=== PATIENT | male | born 1965 | race Caucasian/White ===

== ENCOUNTER 2017-05-20 17:53 | Emergency (ER) | payer OTHER ==
[~2017-05-20] VITALS: Ht 172.7 cm; Wt 83.0 kg
[~2017-05-20 17:53] MED LIST: GLUCTAB PO; IBUP800T23 PO
[2017-05-20 18:09] VITALS: BP 172/85; PULSE 82; RESP 16; TEMP 98.9; O2SAT 100
[2017-05-20] MEDS ORDERED: GLIP1TAB51 PO (18:57)
[2017-05-20 19:12] VITALS: BP 155/85; PULSE 68; RESP 20; TEMP 98; O2SAT 99
[2017-05-20 19:27] LABS: AUTOMATED NEUTROPHIL # 4.6 TH/MM3 (1.8-7.7); BASOPHIL % 0.7 % (0.0-2.0); EOSINOPHIL # 0.2 TH/MM3 (0-0.4); EOSINOPHIL % 3.7 % (0.0-4.0); HEMATOCRIT 42.8 % (39.0-51.0); HEMO FLAGS DIFF FINAL; LYMPH % 18.6 % (9.0-44.0); LYMPHOCYTE # 1.2 TH/MM3 (1.0-4.8); MEAN CELL VOLUME 85.9 FL (80.0-100.0); MEAN CORPUSCULAR HEMOGLOBIN 29.2 PG (27.0-34.0); MONO % 10.5 % (0.0-8.0); NEUT % 66.5 % (16.0-70.0); PLATELET COUNT 222 TH/MM3 (150-450); RED BLOOD COUNT 4.98 MIL/MM3 (4.50-5.90); WHITE BLOOD COUNT 6.7 TH/MM3 (4.0-11.0)
[2017-05-20 19:37] LABS: CHLORIDE 97 MEQ/L (98-107); POTASSIUM 3.8 MEQ/L (3.5-5.1); SODIUM (NA) 131 MEQ/L (136-145)
[2017-05-20 19:40] LABS: ANION GAP 8 MEQ/L (5-15); BICARBONATE 25.8 MEQ/L (21.0-32.0); BLOOD UREA NITROGEN 15 MG/DL (7-18)
[2017-05-20 19:43] LABS: ALT (GPT) 27 U/L (12-78)
[2017-05-20 19:44] LABS: AST (GOT) 14 U/L (15-37); GLOMERULAR FILTRATION RATE 64 ML/MIN (>89)
[2017-05-20 19:45] LABS: TOTAL BILIRUBIN ADULT 0.6 MG/DL (0.2-1.0)
[2017-05-20 19:46] LABS: ALKALINE PHOSPHATASE 134 U/L (45-117)
--- NOTE | 2017-05-20 20:09 | PD ---
HPI Chief Complaint: Hypertension Time Seen by Provider: 18:18 Travel History International Travel<30 days: No Contact w/Intl Traveler<30days: No Traveled to known affect area: No History of Present Illness HPI Patient is a 51-year-old male who comes in because he notices blood pressure was high. He says today he was at the past pressure when he felt like his sugar was getting low. He says he had a soda and a candy bar and felt better, but he called the ambulance to be checked out. He says when they arrived he was told his blood pressure was high. He says he came in because he wanted to be checked out for the high blood pressure. He says he was told he had high blood pressure in the past, but was weaned off of his blood pressure medication by his doctor. He denies any chest pain, shortness of breath, headache or blurred vision. He says overall he is feeling better since eating. PFSH Past Medical History Arthritis: Yes Blood Disorders: No Cancer: No Cardiovascular Problems: Yes Chemotherapy: No Chest Pain: Yes Diabetes: Yes Patient Takes Glucophage: No Diminished Hearing: No Endocrine: Yes Genitourinary: No Hypertension: Yes Immune Disorder: No Musculoskeletal: Yes (KNEE) Neurologic: No Psychiatric: No Reproductive: No Respiratory: No Radiation Therapy: No Tetanus Vaccination: < 5 Years Influenza Vaccination: No Past Surgical History Appendectomy: Yes Pacemaker: No Social History Alcohol Use: No Tobacco Use: No Substance Use: No Allergies-Medications (Allergen,Severity, Reaction): Coded Allergies: banana (Unverified Allergy, Severe, Anaphylaxis, 05/20/17) cephalexin (Unverified Allergy, Severe, hives, 05/20/17) mushroom (Unverified Allergy, Severe, Anaphylaxis, 05/20/17) Uncoded Allergies: B B Q SAUCE (Allergy, Severe, 11/14/05) Reported Meds & Prescriptions Reported Meds & Active Scripts Active Reported Glipizide ER (Glipizide) 10 Mg Glen 10 Mg PO DAILY Take with breakfast or first main meal of the day Review of Systems Except as stated in HPI: all other systems reviewed are Neg General / Constitutional: No: Fever, Chills Eyes: No: Blurred Vision HENT: No: Headaches, Lightheadedness Cardiovascular: No: Chest Pain or Discomfort, Palpitations Respiratory: No: Shortness of Breath Gastrointestinal: No: Nausea, Vomiting Musculoskeletal: No: Myalgias, Edema Skin: No Rash, No Change in Pigmentation Neurologic: No: Weakness, Dizziness Physical Exam Narrative GENERAL: Awake and alert, in no acute distress. SKIN: Focused skin assessment warm/dry. HEAD: Atraumatic. Normocephalic. EYES: Pupils equal and round. No scleral icterus. Extraocular movements intact. ENT: Mucous membranes pink and moist. NECK: Trachea midline. No JVD. CARDIOVASCULAR: Regular rate and rhythm. No murmur appreciated. RESPIRATORY: No accessory muscle use. Clear to auscultation. Breath sounds equal bilaterally. GASTROINTESTINAL: Abdomen soft, non-tender, nondistended. MUSCULOSKELETAL: No obvious deformities. No clubbing. No cyanosis. No edema. NEUROLOGICAL: Awake and alert. No obvious cranial nerve deficits. Motor grossly within normal limits. Normal speech. PSYCHIATRIC: Appropriate mood and affect; insight and judgment normal. Data Data Last Documented VS Vital Signs Date Time Temp Pulse Resp B/P (MAP) Pulse Ox O2 Delivery O2 Flow Rate FiO2 05/20/17 19:12 98.0 68 20 155/85 (108) 99 Room Air Orders Orders Iv Access Insert/Monitor (05/20/17 18:25) Complete Blood Count With Diff (05/20/17 18:25) Comprehensive Metabolic Panel (05/20/17 18:25) Troponin I (05/20/17 18:25) Electrocardiogram (05/20/17 ) Labs Laboratory Tests Test 05/20/17 19:05 White Blood Count 6.7 TH/MM3 Red Blood Count 4.98 MIL/MM3 Hemoglobin 14.5 GM/DL Hematocrit 42.8 % Mean Corpuscular Volume 85.9 FL Mean Corpuscular Hemoglobin 29.2 PG Mean Corpuscular Hemoglobin Concent 34.0 % Red Cell Distribution Width 13.0 % Platelet Count 222 TH/MM3 Mean Platelet Volume 7.1 FL Neutrophils (%) (Auto) 66.5 % Lymphocytes (%) (Auto) 18.6 % Monocytes (%) (Auto) 10.5 % Eosinophils (%) (Auto) 3.7 % Basophils (%) (Auto) 0.7 % Neutrophils # (Auto) 4.6 TH/MM3 Lymphocytes # (Auto) 1.2 TH/MM3 Monocytes # (Auto) 0.7 TH/MM3 Eosinophils # (Auto) 0.2 TH/MM3 Basophils # (Auto) 0.0 TH/MM3 CBC Comment DIFF FINAL Differential Comment Blood Urea Nitrogen 15 MG/DL Creatinine 1.20 MG/DL Random Glucose 249 MG/DL Total Protein 7.6 GM/DL Albumin 4.0 GM/DL Calcium Level 8.3 MG/DL Alkaline Phosphatase 134 U/L Aspartate Amino Transf (AST/SGOT) 14 U/L Alanine Aminotransferase (ALT/SGPT) 27 U/L Total Bilirubin 0.6 MG/DL Sodium Level 131 MEQ/L Potassium Level 3.8 MEQ/L Chloride Level 97 MEQ/L Carbon Dioxide Level 25.8 MEQ/L Anion Gap 8 MEQ/L Estimat Glomerular Filtration Rate 64 ML/MIN Troponin I LESS THAN 0.02 NG/ML MDM Medical Decision Making Medical Screen Exam Complete: Yes Emergency Medical Condition: Yes Medical Record Reviewed: Yes Interpretation(s) ECG shows normal sinus rhythm at 61, no ST elevation or depression, normal intervals. Differential Diagnosis Benign essential hypertension versus anxiety versus hyperglycemia versus hypoglycemia Narrative Course Patient is a 51-year-old male who comes in because he is concerned his blood pressure is high. Exam shows no acute abnormalities. He never had any chest pain, shortness of breath, blurred vision, headache, dizziness. He has no physical complaints at this time. IV established, labs sent. Labs show no acute abnormalities, blood sugar is 249. Troponin is negative, creatinine is within normal limits. Patient's blood pressure is 155/85 without medication. He is having no symptoms currently. He is advised to call his doctor tomorrow and make an appointment to speak with him regarding blood pressure medications. He is advised of reasons to return to the emergency department and advised to return as needed for any worsening symptoms. Diagnosis Primary Impression: High blood pressure Qualified Codes: I10 - Essential (primary) hypertension Patient Instructions: General Instructions, Hypertension (ED) Additional Instructions: Follow-up with your doctor regarding her blood pressure. Return any time for any worsening symptoms. Disposition: 01 DISCHARGE HOME Condition: Stable Karen Olivares MD May 20, 2017 20:09
--- NOTE | 2017-05-21 19:33 | EKG ---
Date Performed: 05/20/2017 Time Performed: 19:20:50 PTAGE: 51 years EKG: Sinus rhythm NORMAL ECG PREVIOUS TRACING : 02/26/2016 06.10 Compared to prior tracing no significant change DOCTOR: Juliano Bledsoe Interpretating Date/Time 05/21/2017 19:31:05
== END 2017-05-20 20:34 | disposition home or self-care (01) ==
LOC: PHED 17:53
DX: I10 Essential (primary) hypertension (principal); E11.9 Type 2 diabetes mellitus without complications; M19.90 Unspecified osteoarthritis, unspecified site
CPT/HCPCS: 80053; 84484; 85025; 93005; 99284

== ENCOUNTER 2017-08-23 19:36 | Observation (INO) | payer OTHER ==
[~2017-08-23] VITALS: Ht 172.7 cm; Wt 75.0 kg
[~2017-08-23 19:36] MED LIST changes: +GLIP1TAB51 PO; -GLUCTAB PO; -IBUP800T23 PO
[2017-08-23 19:44] VITALS: BP 180/89; PULSE 74; RESP 18; TEMP 98.2; O2SAT 99
[2017-08-23] MEDS ORDERED: LOSA50TA PO (19:53)
[2017-08-23] MEDS ORDERED: LORazepam 2 MG/ML VIAL IV PUSH ONE (20:00)
[2017-08-23 20:14] LABS: BASOPHIL % 0.8 % (0.0-2.0); EOSINOPHIL # 0.2 TH/MM3 (0-0.4); EOSINOPHIL % 3.9 % (0.0-4.0); HEMATOCRIT 37.4 % (39.0-51.0); HEMOGLOBIN 13.6 GM/DL (13.0-17.0); LYMPH % 26.9 % (9.0-44.0); LYMPHOCYTE # 1.4 TH/MM3 (1.0-4.8); MEAN CELL VOLUME 84.8 FL (80.0-100.0); MEAN CORPUSCULAR HEMOGLOBIN 30.9 PG (27.0-34.0); MEAN PLATELET VOLUME 6.8 FL (7.0-11.0); MONO % 12.2 % (0.0-8.0); MONOCYTE # 0.7 TH/MM3 (0-0.9); NEUT % 56.2 % (16.0-70.0); PLATELET COUNT 206 TH/MM3 (150-450); RED CELL DISTRIBUTION WIDTH 14.4 % (11.6-17.2); WHITE BLOOD COUNT 5.4 TH/MM3 (4.0-11.0)
[2017-08-23 20:15] LABS: MEAN CORPUSCULAR HGB CONC 36.4 % (32.0-36.0)
--- NOTE | 2017-08-23 20:15 | RADRPT ---
EXAM DATE/TIME: 08/23/2017 19:59 [facility] COMPARISON: No previous studies available for comparison. INDICATIONS : Chest pain. MEDICAL HISTORY : None. SURGICAL HISTORY : None. ENCOUNTER: Initial ACUITY: 1 day PAIN SCORE: 7/10 LOCATION: middle chest. FINDINGS: A single view of the chest demonstrates the lungs to be symmetrically aerated without evidence of mas s, infiltrate or effusion. The cardiomediastinal contours are unremarkable. Osseous structures are intact. There is near atelectasis at the right lung base. CONCLUSION: Platelike atelectasis at the right base is suspected. Mihir Mauricio MD on August 23, 2017 at 20:13 Board Certified Radiologist. This report was verified electronically.
[2017-08-23] MEDS ORDERED: PANTOPRAZOLE SODIUM 40 MG VIAL IV PUSH ONE (20:30)
[2017-08-23 20:33] LABS: BICARBONATE 24.2 MEQ/L (21.0-32.0); BLOOD UREA NITROGEN 15 MG/DL (7-18); CALCIUM 8.2 MG/DL (8.5-10.1); CHLORIDE 103 MEQ/L (98-107); CREATININE 1.18 MG/DL (0.60-1.30); GLOMERULAR FILTRATION RATE 65 ML/MIN (>89); GLUCOSE,RANDOM 266 MG/DL (74-106); SODIUM (NA) 135 MEQ/L (136-145)
[2017-08-23 20:36] LABS: TROPONIN I LESS THAN 0.02 NG/ML (0.02-0.05)
[2017-08-23 21:05] VITALS: BP 143/76; PULSE 78; RESP 18; O2SAT 98
[2017-08-23] MEDS ORDERED: SODIUM CHLORIDE 0.9% FLUSH 10 ML FLUSH IV FLUSH PRN (22:30)
--- NOTE | 2017-08-23 23:17 | PD ---
HPI Chief Complaint: Chest Pain Time Seen by Provider: 19:41 Travel History International Travel<30 days: No Contact w/Intl Traveler<30days: No Traveled to known affect area: No History of Present Illness HPI Patient is a 51-year-old male who is eating dinner porkchops suddenly during his meal he felt severe pain in his substernal area epigastrium. He did not feel choking he just felt as if something was burning in his mid sternal substernal area. This family called 911 reports he looked pale and diaphoretic during that he made himself vomit and food did come back up but he still had pain paramedics got in the ambulance gave him 2 nitroglycerin sprays and 4 baby aspirin en route the pain seemed to subside by the time he arrives in the ER he is no more pain. Past medical history is he's not insulin dependent diabetic on glipizide and he takes losartan for hypertension he has had a stress test over 5 years ago but not since then. At the time I got to the patient EKG I reviewed labs were ordered his pain was completely resolved. PFSH Past Medical History Arthritis: Yes Blood Disorders: No Cancer: No Cardiovascular Problems: Yes (HTN) Chemotherapy: No Chest Pain: Yes Diabetes: Yes (Glipizide) Patient Takes Glucophage: Yes Diminished Hearing: No Endocrine: Yes Genitourinary: No Hypertension: Yes Immune Disorder: No Musculoskeletal: Yes (KNEE) Neurologic: No Psychiatric: No Reproductive: No Respiratory: No Radiation Therapy: No Tetanus Vaccination: < 5 Years Influenza Vaccination: No Past Surgical History Appendectomy: Yes Eye Surgery: Yes (Cataract surgery bilateral ) Genitourinary Surgery: Yes (Vasectomy) Pacemaker: No Other Surgery: No Social History Alcohol Use: No Tobacco Use: No Substance Use: No Allergies-Medications (Allergen,Severity, Reaction): Coded Allergies: banana (Unverified Allergy, Severe, Anaphylaxis, 05/20/17) cephalexin (Unverified Allergy, Severe, hives, 05/20/17) mushroom (Unverified Allergy, Severe, Anaphylaxis, 05/20/17) Uncoded Allergies: B B Q SAUCE (Allergy, Severe, 11/14/05) Reported Meds & Prescriptions Reported Meds & Active Scripts Active Reported Losartan (Losartan Potassium) 50 Mg Tab 50 Mg PO DAILY Glipizide ER (Glipizide) 10 Mg Glen 10 Mg PO DAILY Take with breakfast or first main meal of the day Review of Systems Except as stated in HPI: all other systems reviewed are Neg Cardiovascular: Positive: Chest Pain or Discomfort Physical Exam Narrative GENERAL: Patient is in no distress he is awake alert nondiaphoretic SKIN: Warm and dry. HEAD: Atraumatic. Normocephalic. EYES: Pupils equal and round. No scleral icterus. No injection or drainage. ENT: No nasal bleeding or discharge. Mucous membranes pink and moist. NECK: Trachea midline. No JVD. CARDIOVASCULAR: Regular rate and rhythm. RESPIRATORY: No accessory muscle use. Clear to auscultation. Breath sounds equal bilaterally. GASTROINTESTINAL: Abdomen soft, non-tender, nondistended. Hepatic and splenic margins not palpable. MUSCULOSKELETAL: Extremities without clubbing, cyanosis, or edema. No obvious deformities. NEUROLOGICAL: Awake and alert. No obvious cranial nerve deficits. Motor grossly within normal limits. Five out of 5 muscle strength in the arms and legs. Normal speech. PSYCHIATRIC: Appropriate mood and affect; insight and judgment normal. Data Data Last Documented VS Vital Signs Date Time Temp Pulse Resp B/P (MAP) Pulse Ox O2 Delivery O2 Flow Rate FiO2 08/23/17 21:05 78 18 143/76 (98) 98 Room Air 08/23/17 19:44 98.2 Orders Orders Electrocardiogram (08/23/17 19:48) Complete Blood Count With Diff (08/23/17 19:48) Basic Metabolic Panel (Bmp) (08/23/17 19:48) Ckmb (Isoenzyme) Profile (08/23/17 19:48) Troponin I (08/23/17 19:48) Chest, Single Ap (08/23/17 19:48) Iv Access Insert/Monitor (08/23/17 19:48) Ecg Monitoring (08/23/17 19:48) Oxygen Administration (08/23/17 19:48) Oximetry (08/23/17 19:48) Lorazepam Inj (Ativan Inj) (08/23/17 20:00) Pantoprazole Inj (Protonix Inj) (08/23/17 20:30) CKMB (08/23/17 19:50) CKMB% (08/23/17 19:50) Admit Order (Ed Use Only) (08/23/17 22:09) Labs Laboratory Tests Test 08/23/17 19:50 White Blood Count 5.4 TH/MM3 Red Blood Count 4.40 MIL/MM3 Hemoglobin 13.6 GM/DL Hematocrit 37.4 % Mean Corpuscular Volume 84.8 FL Mean Corpuscular Hemoglobin 30.9 PG Mean Corpuscular Hemoglobin Concent 36.4 % Red Cell Distribution Width 14.4 % Platelet Count 206 TH/MM3 Mean Platelet Volume 6.8 FL Neutrophils (%) (Auto) 56.2 % Lymphocytes (%) (Auto) 26.9 % Monocytes (%) (Auto) 12.2 % Eosinophils (%) (Auto) 3.9 % Basophils (%) (Auto) 0.8 % Neutrophils # (Auto) 3.0 TH/MM3 Lymphocytes # (Auto) 1.4 TH/MM3 Monocytes # (Auto) 0.7 TH/MM3 Eosinophils # (Auto) 0.2 TH/MM3 Basophils # (Auto) 0.0 TH/MM3 CBC Comment AUTO DIFF Differential Comment AUTO DIFF CONFIRMED Blood Urea Nitrogen 15 MG/DL Creatinine 1.18 MG/DL Random Glucose 266 MG/DL Calcium Level 8.2 MG/DL Sodium Level 135 MEQ/L Potassium Level 3.9 MEQ/L Chloride Level 103 MEQ/L Carbon Dioxide Level 24.2 MEQ/L Anion Gap 8 MEQ/L Estimat Glomerular Filtration Rate 65 ML/MIN Total Creatine Kinase 144 U/L Creatine Kinase MB 3.1 NG/ML Troponin I LESS THAN 0.02 NG/ML MDM Medical Decision Making Medical Screen Exam Complete: Yes Emergency Medical Condition: Yes Medical Record Reviewed: Yes Differential Diagnosis Food impaction versus GERD versus gastritis versus esophagitis. Versus cardiac ischemia versus PE versus other Narrative Course EKG is normal sinus rhythm first troponin is negative blood pressure is 132/70 heart rate is 79 patient is stable without any pain. He is a diabetic he is a hypertensive he agrees to stay for serial troponins and a stress test in the morning at this time is stable or cardiac ischemia is the rule out Diagnosis Primary Impression: Chest pain Qualified Codes: R07.9 - Chest pain, unspecified Admitting Information Admitting Physician Requests: Observation Agustin Kwok MD Aug 23, 2017 23:17
[2017-08-23 23:43] LABS: TROPONIN I LESS THAN 0.02 NG/ML (0.02-0.05)
[2017-08-24] VITALS (7 sets, daily range): BP systolic 117–189; BP diastolic 61–86; PULSE 65–83; RESP 18–20; TEMP 97.8–98.2; O2SAT 20–99
[2017-08-24] MEDS ORDERED: ALUMINUM/MAGNESIUM/SIMETH 30 ML CUP PO SCH (00:45)
[2017-08-24] MEDS ORDERED: ATROPINE/SCOPOLAM/HYOSCYAM/PB ELIXIR 10 ML CUP PO SCH (00:45)
[2017-08-24] MEDS ORDERED: LIDOCAINE VISCOUS 2% SOLN 15 ML UDC PO SCH (00:45)
[2017-08-24 02:48] LABS: TROPONIN I LESS THAN 0.02 NG/ML (0.02-0.05)
[2017-08-24] MEDS ORDERED: GLUCAGON 1 MG/ML VIAL OTHER PRN (08:45)
[2017-08-24] MEDS ORDERED: DEXTROSE 50% IN WATER 50 ML VIAL(D50) IV PUSH PRN (08:45)
[2017-08-24] MEDS ORDERED: SODIUM CHLORIDE 0.9% FLUSH 10 ML FLUSH IV FLUSH SCH (09:00)
[2017-08-24] MEDS ORDERED: LOSARTAN 50 MG TAB PO SCH (09:00)
--- NOTE | 2017-08-24 10:34 | HHI.HP ---
HPI Primary Care Physician Rafita Cooley DO Chief Complaint Chest pain History of Present Illness This is a 51-year-old male with history of hypertension diabetes that presents to ED via [facility] with a complaint of developing 2 discomforts in his chest. He states that he was having dinner and outback restaurant last evening when he began to have a substernal discomfort in his chest. [facility] was called. States he was given aspirin and seminal nitroglycerin which helped a little bit but it continued to persist for about an hour and a half. Then while he was in the chest pain center last evening the discomfort recurred and he was given a GI cocktail which resolved the symptoms quickly. Denies having abdominal pain. Has had no nausea or vomiting. Denies blood in stool. Denies shortness of breath does not recall being diaphoretic however the ER report states that his told staff that he looked diaphoretic with the first episode. Cannot recall prior history of CAD. Upon review records she had to [facility] protocol ETT is that were nonischemic in 2005 and 2009. Now followed by cardiology. Denies recent illnesses. Denies fevers or chills. Denies history of GERD. Review of Systems General: Patient denies fevers, chills recent, and recent travel HEENT: Patient denies headache, sore throat, difficulty swallowing. Cardiovascular: Has the chest discomfort as mentioned above. Denies sensation of heart beating rapidly or irregularly. No syncope. He cannot recall being diaphoretic but the ER notes states the told staff that he was diaphoretic during the first episode of discomfort. Respiratory: Denies shortness of breath or inspirational chest discomfort. Denies coughing wheezing or hemoptysis. GI: Patient denies nausea, vomiting, diarrhea, abdominal pain, bloody stools. Musculoskeletal: Patient denies joint pain or edema. Denies calf pain or edema. Neurovascular: Patient denies numbness, tingling, weakness in extremities. Denies headache. Endocrine: Denies polyuria and polydipsia. Hematologic: Denies easy bruising. Skin: Denies rash or itching. Past Family Social History Allergies: Coded Allergies: banana (Unverified Allergy, Severe, Anaphylaxis, 05/20/17) cephalexin (Unverified Allergy, Severe, hives, 05/20/17) mushroom (Unverified Allergy, Severe, Anaphylaxis, 05/20/17) Uncoded Allergies: B B Q SAUCE (Allergy, Severe, 11/14/05) Past Medical History Hypertension and diabetes. Denies hyperlipidemia and known CAD. Past Surgical History Bilateral cataracts. Vasectomy and appendectomy. Reported Medications Reported Meds & Active Scripts Active Reported Losartan (Losartan Potassium) 50 Mg Tab 50 Mg PO DAILY Glipizide ER (Glipizide) 10 Mg Glen 10 Mg PO DAILY Take with breakfast or first main meal of the day Active Ordered Medications Current Medications Medications (Trade) Dose Ordered Sig/Skylar Route Start Time Stop Time Status Last Admin (NS Flush) 2 ml UNSCH PRN IV FLUSH 08/23/17 22:30 (NS Flush) 2 ml BID IV FLUSH 08/24/17 09:00 08/24/17 08:38 (Cozaar) 50 mg DAILY PO 08/24/17 09:00 08/24/17 09:10 (NovoLOG SUPPLEMENTAL SCALE) 1 ACHS SLIDING SCALE SQ 08/24/17 12:00 (D50w (Vial) Inj) 50 ml UNSCH PRN IV PUSH 08/24/17 08:45 (Glucagon Inj) 1 mg UNSCH PRN OTHER 08/24/17 08:45 Family History Denies family history of CAD. Social History Nonsmoker. Denies alcohol or illicit drugs. He is . Physical Exam Vital Signs Vital Signs Date Time Temp Pulse Resp B/P (MAP) Pulse Ox O2 Delivery O2 Flow Rate FiO2 08/24/17 08:11 98.2 69 20 117/61 (79) 97 08/24/17 07:17 68 08/24/17 06:24 69 08/24/17 04:47 74 08/24/17 04:28 97.8 83 18 124/73 (90) 99 08/24/17 01:06 97.8 68 20 189/86 (120) 98 08/23/17 21:05 78 18 143/76 (98) 98 Room Air 08/23/17 19:44 98.2 74 18 180/89 (119) 99 Physical Exam GENERAL: This is a well-nourished, well-developed patient, in no apparent distress. Patient speaks in clear complete sentences. Patient is pleasant. HEENT: Head is atraumatic and normocephalic. Neck is supple without lymphadenopathy and trachea is midline. No JVD or carotid bruits. CARDIOVASCULAR: Regular rate and rhythm without murmurs, gallops, or rubs. RESPIRATORY: Clear to auscultation. Breath sounds equal bilaterally. No wheezes , rales, or rhonchi. Chest wall is nontender. No use of accessory muscles. GASTROINTESTINAL: Abdomen is nontender, nondistended. Abdomen soft. No obvious pulsatile mass or bruit. No CVA tenderness. Strong femoral pulses bilaterally. Normal bowel sounds in all quadrants. MUSCULOSKELETAL: Patient is moving upper and lower extremities freely. No calf tenderness or edema, no Homans sign. Strong pulses in upper and lower extremities. NEUROLOGICAL: Patient is alert and oriented. Cranial nerves 2-12 are grossly intact. No focal deficits and speech is clear. SKIN: No rash and turgor is normal. Laboratory Laboratory Tests Test 08/23/17 19:50 08/23/17 23:00 08/24/17 02:10 White Blood Count 5.4 Red Blood Count 4.40 Hemoglobin 13.6 Hematocrit 37.4 Mean Corpuscular Volume 84.8 Mean Corpuscular Hemoglobin 30.9 Mean Corpuscular Hemoglobin Concent 36.4 Red Cell Distribution Width 14.4 Platelet Count 206 Mean Platelet Volume 6.8 Neutrophils (%) (Auto) 56.2 Lymphocytes (%) (Auto) 26.9 Monocytes (%) (Auto) 12.2 Eosinophils (%) (Auto) 3.9 Basophils (%) (Auto) 0.8 Neutrophils # (Auto) 3.0 Lymphocytes # (Auto) 1.4 Monocytes # (Auto) 0.7 Eosinophils # (Auto) 0.2 Basophils # (Auto) 0.0 CBC Comment AUTO DIFF Differential Comment AUTO DIFF CONFIRMED Blood Urea Nitrogen 15 Creatinine 1.18 Random Glucose 266 Calcium Level 8.2 Sodium Level 135 Potassium Level 3.9 Chloride Level 103 Carbon Dioxide Level 24.2 Anion Gap 8 Estimat Glomerular Filtration Rate 65 Total Creatine Kinase 144 122 123 Creatine Kinase MB 3.1 2.5 2.1 Troponin I LESS THAN 0.02 LESS THAN 0.02 LESS THAN 0.02 Result Diagram: 08/23/17194908/23/171949 Imaging Last 48 hours Impressions Chest X-Ray 08/23/171947 Signed Impressions: Service Date/Time: August 19:59 - CONCLUSION: Platelike atelectasis at the right base is suspected. Mihir Mauricio MD Course EKGs are sinus rhythm without significant ST segment depressions or elevations. Caprini VTE Risk Assessment Caprini VTE Risk Assessment: No/Low Risk (score <= 1) Caprini Risk Assessment Model Point Value = 1 Point Value = 2 Point Value = 3 Point Value = 5 Age 41-60 Minor surgery BMI > 25 kg/m2 Swollen legs Varicose veins or History of unexplained or recurrent spontaneous Oral contraceptives or hormone replacement Sepsis (< 1 month) Serious lung disease, including pneumonia (< 1 month) Abnormal pulmonary function Acute myocardial infarction Congestive heart failure (< 1 month) History of inflammatory bowel disease Medical patient at bed rest Age 61-74 Arthroscopic surgery Major open surgery (> 45 min) Laparoscopic surgery (> 45 min) Malignancy Confined to bed (> 72 hours) Immobilizing plaster cast Central venous access Age >= 75 History of VTE Family history of VTE Factor V Leiden Prothrombin [id number] Lupus anticoagulant Anticardiolipin antibodies Elevated serum homocysteine Heparin-induced thrombocytopenia Other congenital or acquired thrombophilia Stroke (< 1 month) Elective arthroplasty Hip, pelvis, or leg fracture Acute spinal cord injury (< 1 month) Prophylaxis Regimen Total Risk Factor Score Risk Level Prophylaxis Regimen 0-1 Low Early ambulation 2 Moderate Order ONE of the following: *Sequential Compression Device (SCD) *Heparin 5000 units SQ BID 3-4 Higher Order ONE of the following medications: *Heparin 5000 units SQ TID *Enoxaparin/Lovenox 40 mg SQ daily (WT < 150 kg, CrCl > 30 mL/min) *Enoxaparin/Lovenox 30 mg SQ daily (WT < 150 kg, CrCl > 10-29 mL/min) *Enoxaparin/Lovenox 30 mg SQ BID (WT < 150 kg, CrCl > 30 mL/min) AND/OR *Sequential Compression Device (SCD) 5 or more Highest Order ONE of the following medications: *Heparin 5000 units SQ TID (Preferred with Epidurals) *Enoxaparin/Lovenox 40 mg SQ daily (WT < 150 kg, CrCl > 30 mL/min) *Enoxaparin/Lovenox 30 mg SQ daily (WT < 150 kg, CrCl > 10-29 mL/min) *Enoxaparin/Lovenox 30 mg SQ BID (WT < 150 kg, CrCl > 30 mL/min) AND *Sequential Compression Device (SCD) Assessment and Plan Assessment and Plan * Chest pain: Patient has had serial cardiac enzymes and EKGs for ruling out purposes. He was seen by Dr. Ritchie cardiology and the chest pain center with multiple risk factors, patient will now proceed with a nuclear ETT. He'll be discharged home if the stress test is nonischemic. He should follow-up with PCP and return to ED for interval issues. * Hypertension: Continue current medication. * Diabetes: Patient will resume his medication discharge. She will have sliding scale insulin coverage while in chest pain center. He also needs discuss statin therapy with his primary care physician. With history of diabetes he should be on a statin. Patient is agreeable to this plan. He is stable at this time. Alfredo Walden Aug 24, 2017 10:34
--- NOTE | 2017-08-24 10:35 | HHI.DCPOC ---
Discharge Care Plan Diagnosis: (1) DM (diabetes mellitus) (2) Hypertension (3) Chest pain Goals to Promote Your Health YOU NEED TO DISCUSS TAKING A CHOLESTEROL MEDICATION(STATIN) WITH YOUR PRIMARY CARE PHYSICIAN SINCE YOU HAVE DIABETES. * To prevent worsening of your condition and complications * To maintain your health at the optimal level Directions to Meet Your Goals Take your medications as prescribed Follow your dietary instruction Follow activity as directed Keep your appointments as scheduled Take your immunizations and boosters as scheduled If your symptoms worsen call your PCP, if no PCP go to Urgent Care Center or Emergency Room Smoking is Dangerous to Your Health. Avoid second hand smoke Call the 24-hour hour crisis hotline for domestic abuse at Alfredo Walden Aug 24, 2017 10:35
[2017-08-24] MEDS ORDERED: INSULIN ASPART SUPPLEMENTAL SCALE SQ SCH (12:00)
--- NOTE | 2017-08-24 12:57 | RADRPT ---
EXAM DATE/TIME: 08/24/2017 10:50 [facility] COMPARISON: No previous studies available for comparison. INDICATIONS : Substernal chest pain. Angina DOSE: 27.3 mCi Tc99m Myoview at stress 8.5 mCi Tc99m Myoview at rest REST HEART RATE: 105 BPM TARGET HEART RATE: 145 BPM MAX HEART RATE: 154 BPM REST BLOOD PRESSURE: 158/80 mmHg MAX BLOOD PRESSURE: 162/80 mmHg EJECTION FRACTION: 65% MEDICAL HISTORY : Hypertension. Diabetes mellitus type 2. SURGICAL HISTORY : Vasectomy. ENCOUNTER: Initial ACUITY: 1 day PAIN SCALE: 1/10 LOCATION: Substernal chest TECHNIQUE: The patient underwent upright treadmill exercise in the chest pain center. Continuous ECG tracing wa s monitored during stress. Gated SPECT imaging was performed after stress, and conventional SPECT im aging was performed at rest. The examination was performed on a SPECT/CT scanner, both attenuation-c orrected and non-corrected datasets were reviewed. FINDINGS: DISTRIBUTION: The maximum perfused segment at stress is in the anterior wall. PERFUSION STUDY: The pattern of perfusion at stress is within normal limits. GATED STUDY: There is intact wall motion and thickening without hypokinetic or dyskinetic segments. CONCLUSION: 1. No significant reversibility to suggest ischemia. 2. Normal wall motion with ejection fraction 65%. RISK CATEGORY: Low (<1% Annual Mortality Rate) Joseph Taylor MD on August 24, 2017 at 12:55 Board Certified Radiologist. This report was verified electronically.
[2017-08-24] MEDS ORDERED: PROT40TA PO (13:16)
--- NOTE | 2017-08-24 13:16 | HHI.DCPOC ---
Discharge Care Plan Diagnosis: (1) Chest pain (2) Hypertension (3) DM (diabetes mellitus) Goals to Promote Your Health * To prevent worsening of your condition and complications * To maintain your health at the optimal level Directions to Meet Your Goals Take your medications as prescribed Follow your dietary instruction Follow activity as directed Keep your appointments as scheduled Take your immunizations and boosters as scheduled If your symptoms worsen call your PCP, if no PCP go to Urgent Care Center or Emergency Room Smoking is Dangerous to Your Health. Avoid second hand smoke Call the 24-hour hour crisis hotline for domestic abuse at Alfredo Walden Aug 24, 2017 13:16
--- NOTE | 2017-08-24 22:04 | EKG ---
Date Performed: 08/24/2017 Time Performed: 01:21:12 PTAGE: 51 years EKG: Sinus rhythm NORMAL ECG Since PREVIOUS TRACING , no significant change noted PREVIOUS TRACIN08/23/2017 22.53 DOCTOR: Subha Ritchie Interpretating Date/Time 08/24/2017 22:03:10
--- NOTE | 2017-08-24 22:07 | TR ---
Date Performed: 08/24/2017 Time Performed: 11:22:23 DOCTOR: Subha Ritchie DRUG LIST: CLINICAL HISTORY: CHEST PAIN REASON FOR TEST: REASON FOR ENDING: OBSERVATION: CONCLUSION: PATTI ETT. MITCH PROTOCOL. NO CP. MILD SOB. TEST STOPPED SEONCARY TO LEG FATIGUE. Maximum BB=090 % Target HR Achieved=91.0% Maximum XI=577/70 Total Exercise Time=5:01 COMMENTS:
--- NOTE | 2017-08-24 22:17 | EKG ---
Date Performed: 08/23/2017 Time Performed: 19:46:13 PTAGE: 51 years EKG: Sinus rhythm NORMAL ECG Since PREVIOUS TRACING , no significant change noted PREVIOUS TRACIN05/20/2017 19.20 DOCTOR: Subha Ritchie Interpretating Date/Time 08/24/2017 22:15:55
--- NOTE | 2017-08-24 22:19 | EKG ---
Date Performed: 08/23/2017 Time Performed: 22:53:14 PTAGE: 51 years EKG: Sinus rhythm NORMAL ECG Since PREVIOUS TRACING , no significant change noted PREVIOUS TRACIN08/23/2017 19.46 DOCTOR: Subha Ritchie Interpretating Date/Time 08/24/2017 22:18:33
== END 2017-08-24 14:18 | disposition home or self-care (01) ==
LOC: NEPE 19:36 → NEDA 22:11 → NEPHCDU 23:25
PROVIDERS: ADMIT Internal Medicine Cardiovascular Disease; ATTEND Internal Medicine Cardiovascular Disease
DX: R07.9 Chest pain, unspecified (principal); I10 Essential (primary) hypertension; J98.11 Atelectasis; E11.9 Type 2 diabetes mellitus without complications; Z79.84 Long term (current) use of oral hypoglycemic drugs
CPT/HCPCS: 71045; 78452; 80048; 82550; 82552; 82948; 84484; 85025; 93005; 93017; 96374; 99285; A9502; C9113; G0378

== ENCOUNTER 2017-10-01 12:27 | Emergency (ER) | payer OTHER ==
[~2017-10-01] VITALS: Ht 172.7 cm; Wt 82.0 kg
[~2017-10-01 12:27] MED LIST changes: +LOSA50TA PO; +PROT40TA PO
[2017-10-01] MEDS ORDERED: IOHEXOL 350 MG/ML 10 ML VIAL (for RAD DIAG) IVCONTRAST ONE (12:28)
[2017-10-01 12:40] VITALS: BP 167/85; PULSE 94; RESP 24; TEMP 98.5; O2SAT 98
[2017-10-01 12:42] VITALS: O2SAT 99
[2017-10-01] MEDS ORDERED: SODIUM CHLOR 0.9% 1000 ML INJ 1,000 ML IV ONE ×2 (12:45→15:15)
[2017-10-01] MEDS ORDERED: SODIUM CHLORIDE 0.9% FLUSH 10 ML FLUSH IV FLUSH PRN (12:45)
--- NOTE | 2017-10-01 12:45 | PD ---
HPI Chief Complaint: Abdominal Pain Time Seen by Provider: 12:38 Travel History International Travel<30 days: No Contact w/Intl Traveler<30days: No Traveled to known affect area: No History of Present Illness HPI 52-year-old male patient with history of hypertension and type 2 diabetes, presents to the ER today for intermittent abdominal pain and diarrhea for a month, states it worsened today and he has had 6 diarrheas today, complaining of 5 out of 10 abdominal discomfort. He denies any vomiting, or other issues. He does not know of any exacerbating or relieving factors. He does not know of any sick contacts and denies any recent antibiotic use. Modifying Factors: None Associated Signs & Symptoms: Abdominal pain, diarrhea Risk Factors: None PFSH Past Medical History Arthritis: Yes Blood Disorders: No Cancer: No Cardiovascular Problems: Yes (HTN) Chemotherapy: No Chest Pain: Yes Diabetes: Yes Diminished Hearing: No Endocrine: Yes Genitourinary: No Hypertension: Yes Immune Disorder: No Musculoskeletal: Yes (KNEE) Neurologic: No Psychiatric: No Reproductive: No Respiratory: No Radiation Therapy: No Past Surgical History Appendectomy: Yes Eye Surgery: Yes (Cataract surgery bilateral ) Genitourinary Surgery: Yes (Vasectomy) Pacemaker: No Other Surgery: No Social History Alcohol Use: No Tobacco Use: No Substance Use: No Allergies-Medications (Allergen,Severity, Reaction): Coded Allergies: banana (Unverified Allergy, Severe, Anaphylaxis, 10/01/17) cephalexin (Unverified Allergy, Severe, hives, 10/01/17) mushroom (Unverified Allergy, Severe, Anaphylaxis, 10/01/17) metformin (Verified Adverse Reaction, Unknown, Diarrhea, 10/01/17) Uncoded Allergies: B B Q SAUCE (Allergy, Severe, 11/14/05) Reported Meds & Prescriptions Reported Meds & Active Scripts Active Protonix (Pantoprazole Sodium) 40 Mg Tab 40 Mg PO DAILY Reported Aspirin Low Dose (Aspirin) 81 Mg Chew 81 Mg CHEW DAILY Losartan (Losartan Potassium) 50 Mg Tab 50 Mg PO DAILY Glipizide ER (Glipizide) 10 Mg [place] 10 Mg PO DAILY Take with breakfast or first main meal of the day Review of Systems Except as stated in HPI: all other systems reviewed are Neg Physical Exam Narrative GENERAL: Well-developed middle-aged male patient currently in mild distress. Awake and oriented 3. SKIN: Focused skin assessment warm/dry. HEAD: Atraumatic. Normocephalic. EYES: Pupils equal and round. No scleral icterus. No injection or drainage. ENT: No nasal bleeding or discharge. Mucous membranes pink and moist. NECK: Trachea midline. No JVD. CARDIOVASCULAR: Regular rate and rhythm. No murmur appreciated. RESPIRATORY: No accessory muscle use. Clear to auscultation. Breath sounds equal bilaterally. GASTROINTESTINAL: Abdomen soft, epigastric and left lower quadrant abdominal tenderness without guarding or rebound, nondistended. Hepatic and splenic margins not palpable. MUSCULOSKELETAL: No obvious deformities. No clubbing. No cyanosis. No edema. NEUROLOGICAL: Awake and alert. No obvious cranial nerve deficits. Motor grossly within normal limits. Normal speech. PSYCHIATRIC: Appropriate mood and affect; insight and judgment normal. Data Data Last Documented VS Vital Signs Date Time Temp Pulse Resp B/P (MAP) Pulse Ox O2 Delivery O2 Flow Rate FiO2 10/01/17 12:42 99 10/01/17 12:40 98.5 94 24 Room Air Orders Orders Complete Blood Count With Diff (10/01/17 12:35) Comprehensive Metabolic Panel (10/01/17 12:35) Lipase (10/01/17 12:35) Urinalysis - C+S If Indicated (10/01/17 12:35) Iv Access Insert/Monitor (10/01/17 12:35) Ecg Monitoring (10/01/17 12:35) Oximetry (10/01/17 12:35) Sodium Chloride 0.9% Flush (Ns Flush) (10/01/17 12:45) Sodium Chlor 0.9% 1000 Ml Inj (Ns 1000 M (10/01/17 12:45) Ct Abd/Pel W Iv Contrast(Rout) (10/01/17 12:39) Iohexol 350 Inj (Omnipaque 350 Inj) (10/01/17 12:28) Sodium Chlor 0.9% 1000 Ml Inj (Ns 1000 M (10/01/17 15:15) Dicyclomine Inj (Bentyl Inj) (10/01/17 15:15) Labs Laboratory Tests Test 10/01/17 12:45 10/01/17 14:06 White Blood Count 10.7 TH/MM3 Red Blood Count 4.50 MIL/MM3 Hemoglobin 13.8 GM/DL Hematocrit 38.2 % Mean Corpuscular Volume 84.9 FL Mean Corpuscular Hemoglobin 30.6 PG Mean Corpuscular Hemoglobin Concent 36.1 % Red Cell Distribution Width 13.8 % Platelet Count 211 TH/MM3 Mean Platelet Volume 6.9 FL Neutrophils (%) (Auto) 86.7 % Lymphocytes (%) (Auto) 3.8 % Monocytes (%) (Auto) 7.7 % Eosinophils (%) (Auto) 1.4 % Basophils (%) (Auto) 0.4 % Neutrophils # (Auto) 9.3 TH/MM3 Lymphocytes # (Auto) 0.4 TH/MM3 Monocytes # (Auto) 0.8 TH/MM3 Eosinophils # (Auto) 0.1 TH/MM3 Basophils # (Auto) 0.0 TH/MM3 CBC Comment AUTO DIFF Differential Comment AUTO DIFF CONFIRMED Blood Urea Nitrogen 15 MG/DL Creatinine 0.94 MG/DL Random Glucose 135 MG/DL Total Protein 6.9 GM/DL Albumin 3.7 GM/DL Calcium Level 7.8 MG/DL Alkaline Phosphatase 123 U/L Aspartate Amino Transf (AST/SGOT) 18 U/L Alanine Aminotransferase (ALT/SGPT) 31 U/L Total Bilirubin 0.6 MG/DL Sodium Level 136 MEQ/L Potassium Level 4.0 MEQ/L Chloride Level 105 MEQ/L Carbon Dioxide Level 23.6 MEQ/L Anion Gap 7 MEQ/L Estimat Glomerular Filtration Rate 85 ML/MIN Lipase 100 U/L Urine Color YELLOW Urine Turbidity CLEAR Urine pH 5.5 Urine Specific [place] 1.021 Urine Protein NEG mg/dL Urine Glucose (UA) NEG mg/dL Urine Ketones NEG mg/dL Urine Occult Blood NEG Urine Nitrite NEG Urine Bilirubin NEG Urine Urobilinogen LESS THAN 2.0 MG/DL Urine Leukocyte Esterase NEG Urine RBC LESS THAN 1 /hpf Urine WBC 1 /hpf Urine Squamous Epithelial Cells <1 /hpf Urine Bacteria OCC /hpf Urine Mucus FEW /lpf Microscopic Urinalysis Comment CULT NOT INDICATED MDM Medical Decision Making Medical Screen Exam Complete: Yes Emergency Medical Condition: Yes Medical Record Reviewed: Yes Interpretation(s) Laboratory Tests Test 10/01/17 12:45 10/01/17 14:06 Hematocrit 38.2 % (39.0-51.0) Mean Corpuscular Hemoglobin Concent 36.1 % (32.0-36.0) Mean Platelet Volume 6.9 FL (7.0-11.0) Neutrophils (%) (Auto) 86.7 % (16.0-70.0) Lymphocytes (%) (Auto) 3.8 % (9.0-44.0) Neutrophils # (Auto) 9.3 TH/MM3 (1.8-7.7) Lymphocytes # (Auto) 0.4 TH/MM3 (1.0-4.8) Random Glucose 135 MG/DL (74-106) Calcium Level 7.8 MG/DL (8.5-10.1) Alkaline Phosphatase 123 U/L (45-117) Estimat Glomerular Filtration Rate 85 ML/MIN (>89) Urine Bacteria OCC /hpf (NONE) Urine Mucus FEW /lpf (OCC) Last 24 hours Impressions Abdomen/Pelvis CT 10/01/17 1239 Impressions: Service Date/Time: Sunday, October 01, 2017 14:03 - CONCLUSION: Negative for acute process. Anastacio Glynn MD FACR Differential Diagnosis Abdominal pain, diarrhea: Gastroenteritis versus colitis versus diverticulitis versus dehydration versus metabolic issues versus DKA Narrative Course Lab work and CAT scan was fairly unremarkable. Blood sugar was not significantly elevated. No anion gap. At this point, my plan would be to release him with further symptomatic relief for abdominal pain and diarrhea. Follow-up with primary care doctor. Return for new issues as needed. The plan has been discussed with him and he states understanding. Diagnosis Primary Impression: Abdominal pain Additional Impression: Diarrhea Med/Other Pt SpecificInfo: Prescription(s) given Scripts Loperamide (Imodium A-D) 2 Mg Capsule 2 MG PO DIRECTED Y for DIARRHEA, #15 CAP 0 Refills One capsule after each loose stool. Not to exceed 8 tablets per day. Prov: Carol Kurtz MD 10/01/17 Disposition: DISCHARGE HOME Condition: Stable Carol Kurtz MD Oct 01, 2017 12:45
[2017-10-01] MEDS ORDERED: ASPI81CH6 CHEW (12:48)
[2017-10-01 13:28] LABS: AUTOMATED NEUTROPHIL # 9.3 TH/MM3 (1.8-7.7); BASOPHIL % 0.4 % (0.0-2.0); EOSINOPHIL # 0.1 TH/MM3 (0-0.4); EOSINOPHIL % 1.4 % (0.0-4.0); HEMATOCRIT 38.2 % (39.0-51.0); HEMOGLOBIN 13.8 GM/DL (13.0-17.0); LYMPH % 3.8 % (9.0-44.0); LYMPHOCYTE # 0.4 TH/MM3 (1.0-4.8); MEAN CELL VOLUME 84.9 FL (80.0-100.0); MEAN CORPUSCULAR HEMOGLOBIN 30.6 PG (27.0-34.0); MEAN PLATELET VOLUME 6.9 FL (7.0-11.0); MONO % 7.7 % (0.0-8.0); MONOCYTE # 0.8 TH/MM3 (0-0.9); NEUT % 86.7 % (16.0-70.0); PLATELET COUNT 211 TH/MM3 (150-450); RED CELL DISTRIBUTION WIDTH 13.8 % (11.6-17.2); WHITE BLOOD COUNT 10.7 TH/MM3 (4.0-11.0)
[2017-10-01 13:30] LABS: MEAN CORPUSCULAR HGB CONC 36.1 % (32.0-36.0)
[2017-10-01 13:41] LABS: ALBUMIN 3.7 GM/DL (3.4-5.0); AST (GOT) 18 U/L (15-37); BICARBONATE 23.6 MEQ/L (21.0-32.0); BLOOD UREA NITROGEN 15 MG/DL (7-18); CALCIUM 7.8 MG/DL (8.5-10.1); CHLORIDE 105 MEQ/L (98-107); CREATININE 0.94 MG/DL (0.60-1.30); GLOMERULAR FILTRATION RATE 85 ML/MIN (>89); GLUCOSE,RANDOM 135 MG/DL (74-106); SODIUM (NA) 136 MEQ/L (136-145)
[2017-10-01 13:44] LABS: ALKALINE PHOSPHATASE 123 U/L (45-117); ALT (GPT) 31 U/L (12-78); TOTAL BILIRUBIN ADULT 0.6 MG/DL (0.2-1.0); TOTAL PROTEIN 6.9 GM/DL (6.4-8.2)
--- NOTE | 2017-10-01 14:30 | RADRPT ---
EXAM DATE/TIME: 10/01/2017 14:03 [facility] COMPARISON: No previous studies available for comparison. INDICATIONS : Diarrhea,abdomen pain ,dizzy,nauseated. IV CONTRAST: 96 cc Omnipaque 350 (iohexol) IV ORAL CONTRAST: No oral contrast ingested. RADIATION DOSE: 10.31 CTDIvol (mGy) MEDICAL HISTORY : Hypertension. Diabetes SURGICAL HISTORY : Appendectomy. ENCOUNTER: Initial ACUITY: 1 month PAIN SCALE: 5/10 LOCATION: Abdomen TECHNIQUE: Volumetric scanning of the abdomen and pelvis was performed. Using automated exposure control and ad justment of the mA and/or kV according to patient size, radiation dose was kept as low as reasonably achievable to obtain optimal diagnostic quality images. DICOM format image data is available electro nically for review and comparison. FINDINGS: LOWER LUNGS: The visualized lower lungs are clear. LIVER: Homogeneous density without lesion. There is no dilation of the biliary tree. No calcified gallston es. SPLEEN: Normal size without lesion. PANCREAS: Within normal limits. KIDNEYS: Normal in size and shape. There is no mass, stone or hydronephrosis. ADRENAL GLANDS: Within normal limits. VASCULAR: There is no aortic aneurysm. BOWEL/MESENTERY: The stomach, small bowel, and colon demonstrate no acute abnormality. There is no free intraperitone al air or fluid. ABDOMINAL WALL: Within normal limits. RETROPERITONEUM: There is no lymphadenopathy. BLADDER: No wall thickening or mass. REPRODUCTIVE: Previous vasectomy INGUINAL: There is no lymphadenopathy or hernia. MUSCULOSKELETAL: Within normal limits for patient age. CONCLUSION: Negative for acute process. Anastacio Glynn MD FACR on October 01, 2017 at 14:24 Board Certified Radiologist. This report was verified electronically.
[2017-10-01 15:00] VITALS: BP 167/94; PULSE 105; RESP 20; O2SAT 99
[2017-10-01] MEDS ORDERED: DICYCLOMINE HCL 20 MG/2 ML VIAL IM ONE (15:15)
[2017-10-01 15:18] LABS: BACTERIA, URINE OCC /hpf; BILIRUBIN, URINE NEG (NEG); BLOOD, URINE NEG (NEG); GLUCOSE,URINE NEG (NEG); KETONE, URINE NEG (NEG); MUCUS URINE FEW /lpf (OCC); NITRITE,URINE NEG (NEG); PH, URINE 5.5 (5.0-8.5); SQUAMOUS EPITHELIAL CELL URINE <1 /hpf (0-5); URINE COLOR YELLOW (YELLW/STRAW); URINE LEUKOCYTE ESTERASE NEG (NEG)
[2017-10-01] MEDS ORDERED: LOPE-1 PO (15:32)
[2017-10-01] MEDS ORDERED: ZOFR4TAB3 SL (15:42)
== END 2017-10-01 17:05 | disposition home or self-care (01) ==
LOC: NEPE 12:27
DX: R10.9 Unspecified abdominal pain (principal); R19.7 Diarrhea, unspecified; E11.9 Type 2 diabetes mellitus without complications; I10 Essential (primary) hypertension; Z88.8 Allergy status to other drugs, medicaments and biological substances; Z91.018 Allergy to other foods
CPT/HCPCS: 74177; 80053; 81001; 83690; 85025; 96360; 96361; 96372; 99284; J0500; J7030; Q9967

== ENCOUNTER 2017-12-24 02:59 | Observation (INO) | payer OTHER ==
[2017-12-24] MEDS: NITROGLYCERIN 2% OINT 1 GM PACKET TOP ×4 (03:13→18:33)
[2017-12-24] MEDS: NITROGLYCERIN 0.4 MG SL 25 TABS/BTL SL ×2 (03:13→10:40)
[2017-12-24] MEDS ORDERED: SODIUM CHLORIDE 0.9% FLUSH 10 ML FLUSH IVF (03:15)
[2017-12-24 03:28] LABS: AUTOMATED NEUTROPHIL # 4.1 TH/MM3 (1.8-7.7); BASOPHIL # 0.1 TH/MM3 (0-0.2); BASOPHIL % 0.9 % (0.0-2.0); EOSINOPHIL # 0.2 TH/MM3 (0-0.4); EOSINOPHIL % 2.7 % (0.0-4.0); HEMATOCRIT 38.2 % (39.0-51.0); HEMOGLOBIN 13.8 GM/DL (13.0-17.0); LYMPH % 20.9 % (9.0-44.0); LYMPHOCYTE # 1.3 TH/MM3 (1.0-4.8); MEAN CELL VOLUME 83.1 FL (80.0-100.0); MEAN PLATELET VOLUME 6.8 FL (7.0-11.0); MONO % 10.1 % (0.0-8.0); MONOCYTE # 0.6 TH/MM3 (0-0.9); NEUT % 65.4 % (16.0-70.0); PLATELET COUNT 213 TH/MM3 (150-450); RED CELL DISTRIBUTION WIDTH 13.7 % (11.6-17.2); WHITE BLOOD COUNT 6.3 TH/MM3 (4.0-11.0)
[2017-12-24 03:29] LABS: MEAN CORPUSCULAR HGB CONC 36.1 % (32.0-36.0)
[2017-12-24 03:30] LABS: HEMO FLAGS AUTO DIFF
[2017-12-24 03:40] LABS: INTERNATIONAL NORMALIZED RATIO 1.1 RATIO; PROTHROMBIN TIME - PATIENT 10.7 SEC (9.8-11.6)
[2017-12-24 03:51] LABS: ALBUMIN 3.8 GM/DL (3.4-5.0); ALT (GPT) 28 U/L (12-78); ANION GAP 9 MEQ/L (5-15); AST (GOT) 16 U/L (15-37); BICARBONATE 23.9 MEQ/L (21.0-32.0); BLOOD UREA NITROGEN 15 MG/DL (7-18); CALCIUM 8.3 MG/DL (8.5-10.1); CHLORIDE 105 MEQ/L (98-107); CREATININE 1.14 MG/DL (0.60-1.30); GLOMERULAR FILTRATION RATE 68 ML/MIN (>89); GLUCOSE,RANDOM 202 MG/DL (74-106); LIPASE 113 U/L (73-393); MAGNESIUM 1.9 MG/DL (1.5-2.5); POTASSIUM 3.7 MEQ/L (3.5-5.1); SODIUM (NA) 138 MEQ/L (136-145)
[2017-12-24 03:56] LABS: ALKALINE PHOSPHATASE 128 U/L (45-117); CREATINE KINASE 111 U/L (39-308); TOTAL BILIRUBIN ADULT 0.7 MG/DL (0.2-1.0); TROPONIN I LESS THAN 0.02 NG/ML (0.02-0.05)
[2017-12-24 04:01] LABS: PLATELET ESTIMATE SMEAR NORMAL (NORMAL); PLATELET MORPHOLOGY NORMAL (NORMAL); SCAN/DIFF AUTO DIFF CONFIRMED
[2017-12-24 04:03] LABS: B-TYPE NATRIURETIC PEPTIDE 12 PG/ML (0-100)
[2017-12-24] MEDS ORDERED: ACETAMINOPHEN 500 MG CPLT PO (05:15)
[2017-12-24] MEDS ORDERED: SODIUM CHLORIDE 0.9% FLUSH 10 ML FLUSH IV FLUSH (05:15)
[2017-12-24] MEDS: SODIUM CHLOR 0.9% 1000 ML INJ 1,000 ML IV ×2 (05:34→18:34)
[2017-12-24 06:45] LABS: TROPONIN I LESS THAN 0.02 NG/ML (0.02-0.05)
[2017-12-24 06:49] LABS: CREATINE KINASE 99 U/L (39-308)
[2017-12-24] MEDS: SODIUM CHLORIDE 0.9% FLUSH 10 ML FLUSH IV FLUSH ×2 (08:50→21:00)
[2017-12-24] MEDS: FAMOTIDINE 20 MG TAB PO (08:50)
[2017-12-24] MEDS: ASPIRIN 325 MG TAB PO (09:08)
[2017-12-24] MEDS ORDERED: DEXTROSE 50% IN WATER 50 ML VIAL(D50) IV PUSH (09:45)
[2017-12-24] MEDS ORDERED: GLUCAGON 1 MG/ML VIAL OTHER (09:45)
[2017-12-24 09:48] LABS: TROPONIN I LESS THAN 0.02 NG/ML (0.02-0.05)
[2017-12-24 09:53] LABS: CREATINE KINASE 88 U/L (39-308)
[2017-12-24] MEDS: LOSARTAN 50 MG TAB PO (10:25)
[2017-12-24] MEDS: ALUMINUM/MAGNESIUM/SIMETH 30 ML CUP PO (11:44)
[2017-12-24] MEDS: LIDOCAINE VISCOUS 2% SOLN 15 ML UDC SWISH-SWAL (11:44)
[2017-12-24] MEDS: INSULIN ASPART SUPPLEMENTAL SCALE SQ ×3 (12:00→21:00)
[2017-12-24] MEDS: DIATRIZOATE MEGLUM/DIATRIZOATE SOD 9 ML CUP PO (14:33)
[2017-12-24] MEDS: IOHEXOL 350 MG/ML 10 ML VIAL (for RAD DIAG) IVCONTRAST (16:52)
[2017-12-24] MEDS: DICYCLOMINE HCL 20 MG TAB PO (18:33)
[2017-12-24] MEDS: ONDANSETRON HCL 4 MG/2 ML VIAL IV PUSH (18:51)
[2017-12-24] MEDS ORDERED: CHLORHEXIDINE GLUCONATE 2 % 1 PACK (2 CLOTHS) TOPICAL (21:45)
[2017-12-24] MEDS ORDERED: SODIUM CHLORID 0.9% 500 ML IV (21:45)
[2017-12-24] MEDS ORDERED: LACTATED RINGER'S 1000 ML IV (21:45)
[2017-12-24] MEDS ORDERED: POVIDONE IODINE 5% (ANTISEPSIS KIT) 4 APPLICATIONS EACH NARE (21:45)
[2017-12-24] MEDS ORDERED: METOPROLOL TARTRATE 25 MG TAB PO (21:45)
[2017-12-25] MEDS: FAMOTIDINE 20 MG TAB PO (01:24)
[2017-12-25] MEDS: NITROGLYCERIN 2% OINT 1 GM PACKET TOP ×3 (01:24→12:00)
[2017-12-25] MEDS: SODIUM CHLOR 0.9% 1000 ML INJ 1,000 ML IV ×2 (06:48→13:13)
[2017-12-25] MEDS: INSULIN ASPART SUPPLEMENTAL SCALE SQ ×2 (08:00→12:00)
[2017-12-25] MEDS: PANTOPRAZOLE SOD 40 MG DELAYED RELEASE TAB PO (08:27)
[2017-12-25] MEDS: SODIUM CHLORIDE 0.9% FLUSH 10 ML FLUSH IV FLUSH (08:27)
[2017-12-25] MEDS: DICYCLOMINE HCL 20 MG TAB PO ×2 (08:27→13:12)
[2017-12-25] MEDS: LOSARTAN 50 MG TAB PO (08:27)
[2017-12-25] MEDS: ASPIRIN 325 MG TAB PO (08:27)
[2017-12-25] MEDS ORDERED: POVIDONE IODINE 5% (ANTISEPSIS KIT) 4 APPLICATIONS EACH NARE (09:30)
[2017-12-25] MEDS ORDERED: SODIUM CHLORID 0.9% 500 ML IV (09:30)
[2017-12-25] MEDS ORDERED: METOPROLOL TARTRATE 25 MG TAB PO (09:30)
[2017-12-25] MEDS ORDERED: CHLORHEXIDINE GLUCONATE 2 % 1 PACK (2 CLOTHS) TOPICAL (09:30)
[2017-12-25] MEDS ORDERED: LACTATED RINGER'S 1000 ML IV (09:30)
[2017-12-25] MEDS ORDERED: PROPOFOL 200 MG/20 ML AMP IV (12:00)
[2017-12-25] MEDS ORDERED: LIDOCAINE HCL 1% PF 5 ML SYRINGE OTHER (12:00)
== END 2017-12-25 18:38 | disposition home or self-care (01) ==
LOC: NEPC 02:59 → NEDA 05:12 → NEPGCP 07:13
DX: R07.89 Other chest pain (principal); K29.70 Gastritis, unspecified, without bleeding; K21.0 Gastro-esophageal reflux disease with esophagitis; K57.30 Diverticulosis of large intestine without perforation or abscess without bleeding; K31.84 Gastroparesis; I10 Essential (primary) hypertension; E11.43 Type 2 diabetes mellitus with diabetic autonomic (poly)neuropathy; R10.9 Unspecified abdominal pain; G89.29 Other chronic pain; Z79.84 Long term (current) use of oral hypoglycemic drugs
CPT/HCPCS: 00731; 71046; 74177; 80053; 82550; 82552; 82948; 83690; 83735; 83880; 84484; 85025; 85610; 85730; 88305; 88305-59; 93005; 96361; 96374; 99285-25